=== PATIENT | female | born 1945 | race Native Hawaiian/Other Pacific Islander ===

== ENCOUNTER 2017-03-13 10:12 | Outpatient (CLI) | payer OTHER | END 2017-03-13 12:00 | disposition home or self-care (01) | LOC: MAMMO 10:12 | DX: Z12.31 Encounter for screening mammogram for malignant neoplasm of breast (principal); M81.0 Age-related osteoporosis without current pathological fracture | CPT/HCPCS: G0202-TC ==

== ENCOUNTER 2017-03-28 13:24 | Outpatient (CLI) | payer OTHER | END 2017-03-28 14:45 | disposition home or self-care (01) | LOC: MAMMO 13:24 | DX: R92.0 Mammographic microcalcification found on diagnostic imaging of breast (principal) | CPT/HCPCS: G0206-TC ==

== ENCOUNTER 2017-08-01 10:03 | Outpatient (CLI) | payer OTHER | END 2017-08-01 11:05 | disposition home or self-care (01) | LOC: RAD 10:03 | DX: M89.8X1 Other specified disorders of bone, shoulder (principal); M25.512 Pain in left shoulder ==

== ENCOUNTER 2018-01-23 17:05 | Outpatient (CLI) | payer OTHER | END 2018-01-23 20:34 | disposition home or self-care (01) | LOC: CT 17:05 | DX: S00.83XA Contusion of other part of head, initial encounter (principal) ==

== ENCOUNTER 2018-11-19 15:10 | Outpatient (CLI) | payer OTHER ==
[2018-11-19 15:31] LABS: PLATELET COUNT 251 K/uL (152-353)
[2018-11-19 15:54] LABS: POTASSIUM 3.7 mmol/L (3.6-5.2)
== END 2018-11-19 20:09 | disposition home or self-care (01) ==
LOC: LABW 15:10
PROVIDERS: Internal Medicine Gastroenterology
DX: R10.32 Left lower quadrant pain (principal); K59.1 Functional diarrhea; Z79.899 Other long term (current) drug therapy
CPT/HCPCS: 36415; 80053; 84443; 85027; 85651; 86140

== ENCOUNTER 2018-11-21 13:05 | Outpatient (CLI) | payer OTHER | END 2018-11-21 20:10 | disposition home or self-care (01) | LOC: LAB 13:05 | DX: K59.1 Functional diarrhea (principal); R10.32 Left lower quadrant pain | CPT/HCPCS: 82705; 83630; 87015; 87045; 87324; 87328; 87329; 87449; 87899 ==

== ENCOUNTER 2018-12-04 11:01 | Emergency (ER) | payer OTHER ==
[~2018-12-04] VITALS: Ht 162.6 cm; Wt 54.4 kg
[2018-12-04] MEDS ORDERED: HYDROXYZINE HYD50 MG PO (11:21)
[2018-12-04] MEDS ORDERED: PANTOPRAZOLE 40MG TA PO (11:22)
[2018-12-04] MEDS ORDERED: METR250T19 PO (11:22)
[2018-12-04 12:04] LABS: PLATELET COUNT 249 K/uL (152-353)
[2018-12-04 12:16] LABS: POTASSIUM 3.3 mmol/L (3.6-5.2)
[2018-12-04] MEDS ORDERED: LISITAB PO (12:29)
[2018-12-04 16:20] VITALS: BP 146/77; TEMP 97.6
== END 2018-12-04 16:20 | disposition short-term general hospital (02) ==
LOC: ED 11:01
PROVIDERS: Emergency Medicine
DX: E86.0 Dehydration (principal); B96.89 Other specified bacterial agents as the cause of diseases classified elsewhere; E87.1 Hypo-osmolality and hyponatremia; R79.89 Other specified abnormal findings of blood chemistry
CPT/HCPCS: 36415; 80053; 81000; 82150; 82550; 83605; 83690; 84484; 85027; 93005; 96360; 96361; 96374; 99284; Q0177

== ENCOUNTER 2019-01-02 15:15 | Outpatient (CLI) | payer OTHER ==
[~2019-01-02 15:15] MED LIST: HYDROXYZINE HYD50 MG PO; LISITAB PO; METR250T19 PO; PANTOPRAZOLE 40MG TA PO
== END 2019-01-02 19:41 | disposition home or self-care (01) ==
LOC: LAB 15:15
DX: E87.1 Hypo-osmolality and hyponatremia (principal)
CPT/HCPCS: 83735

== ENCOUNTER 2019-02-07 11:27 | Outpatient (CLI) | payer OTHER | END 2019-02-07 23:59 | disposition home or self-care (01) | LOC: CT 11:27 | DX: K81.9 Cholecystitis, unspecified (principal) | CPT/HCPCS: Q9963 ==

== ENCOUNTER 2019-02-26 13:11 | Outpatient (CLI) | payer OTHER ==
[~2019-02-26] VITALS: Ht 167.6 cm; Wt 49.9 kg
[2019-02-26 13:30] VITALS: BP 121/88; TEMP 98
== END 2019-02-26 14:23 | disposition home or self-care (01) ==
LOC: INF 13:11
DX: M81.0 Age-related osteoporosis without current pathological fracture (principal)
CPT/HCPCS: 36415; 82310; 96372; J0897

== ENCOUNTER 2019-07-17 11:02 | Outpatient (CLI) | payer OTHER ==
[2019-07-17 11:18] LABS: PLATELET COUNT 242 K/uL (152-353)
== END 2019-07-17 22:06 | disposition home or self-care (01) ==
LOC: LABW 11:02
PROVIDERS: Internal Medicine Gastroenterology
DX: K59.1 Functional diarrhea (principal); K80.80 Other cholelithiasis without obstruction
CPT/HCPCS: 36415; 80076; 82272; 82705; 83630; 85027; 87015; 87045; 87324; 87328; 87329; 87449; 87899

== ENCOUNTER 2019-08-31 12:55 | Outpatient (CLI) | payer OTHER ==
[~2019-08-31] VITALS: Ht 152.4 cm; Wt 62.1 kg
[2019-08-31 13:10] VITALS: BP 169/76; TEMP 97.6
== END 2019-08-31 14:05 | disposition home or self-care (01) ==
LOC: INF 12:55
DX: M81.0 Age-related osteoporosis without current pathological fracture (principal)
CPT/HCPCS: 36415; 82310; 96372; J0897

== ENCOUNTER 2020-04-28 08:09 | Outpatient (CLI) | payer OTHER ==
[~2020-04-28] VITALS: Ht 162.6 cm; Wt 59.4 kg
[2020-04-28 08:30] VITALS: BP 157/57; TEMP 97.4
== END 2020-04-28 09:30 | disposition home or self-care (01) ==
LOC: INF 08:09
DX: M81.0 Age-related osteoporosis without current pathological fracture (principal)
CPT/HCPCS: 36415; 82310; 96372; J0897

== ENCOUNTER 2020-05-16 11:09 | Outpatient (CLI) | payer OTHER | END 2020-05-16 23:34 | disposition home or self-care (01) | LOC: LABW 11:09 | DX: K59.1 Functional diarrhea (principal) | CPT/HCPCS: 82705; 83630; 87015; 87045; 87324; 87328; 87329; 87449; 87899 ==

== ENCOUNTER 2020-06-30 11:19 | Outpatient (CLI) | payer OTHER ==
[2020-06-30 12:32] LABS: PLATELET COUNT 218 K/uL (152-353)
[2020-06-30 12:38] LABS: POTASSIUM 3.8 mmol/L (3.6-5.2)
== END 2020-06-30 21:02 | disposition home or self-care (01) ==
LOC: CT 11:19
PROVIDERS: ATTEND Nurse Practitioner Family
DX: R53.83 Other fatigue (principal); R10.11 Right upper quadrant pain; M48.56XD Collapsed vertebra, not elsewhere classified, lumbar region, subsequent encounter for fracture with routine healing
CPT/HCPCS: 80053; 82150; 82306; 83690; 85027

== ENCOUNTER 2020-07-01 13:47 | Outpatient (CLI) | payer OTHER ==
[2020-07-01 14:15] LABS: POTASSIUM 3.9 mmol/L (3.6-5.2)
== END 2020-07-01 22:24 | disposition home or self-care (01) ==
LOC: LAB 13:47
PROVIDERS: ATTEND Family Medicine
DX: N25.89 Other disorders resulting from impaired renal tubular function (principal)
CPT/HCPCS: 80053

== ENCOUNTER 2020-08-24 12:21 | Outpatient (CLI) | payer OTHER ==
[2020-08-24 13:16] LABS: PLATELET COUNT 226 K/uL (152-353)
[2020-08-24 13:19] LABS: POTASSIUM 4.1 mmol/L (3.6-5.2)
== END 2020-08-24 21:44 | disposition home or self-care (01) ==
LOC: LABW 12:21
PROVIDERS: ATTEND Nurse Practitioner Family
DX: N28.89 Other specified disorders of kidney and ureter (principal); N25.89 Other disorders resulting from impaired renal tubular function; R10.11 Right upper quadrant pain
CPT/HCPCS: 36415; 80053; 82150; 83690; 85027

== ENCOUNTER 2020-10-26 14:07 | Outpatient (CLI) | payer OTHER ==
[~2020-10-26] VITALS: Ht 170.2 cm; Wt 63.5 kg
== END 2020-10-26 19:58 | disposition home or self-care (01) ==
LOC: INF 14:07
PROVIDERS: ATTEND Family Medicine
DX: M81.0 Age-related osteoporosis without current pathological fracture (principal)
CPT/HCPCS: 36415; 82310; 96372; J0897

== ENCOUNTER 2020-11-22 15:29 | Inpatient (IN) | payer OTHER ==
[~2020-11-22] VITALS: Ht 170.2 cm; Wt 49.0 kg
--- NOTE | 2020-11-22 15:28 | NUR ---
PT TO FLOOR VIA EMS. PT ALERT TO SELF/ CONFUSED TO LOCATION, TIME, DATE. 22G S/L NOTED TO RFA BRUISING NOTED TO RT ARM, RT LEG AND FOOT. BRUISING NOTED TO LT ARM, LT LEG AND FOOT. BRUISING NOTED TO THADDEUS SIDE. SKIN TEAR TO L ARM, DRY, NO DRAINAGE 3X3X0 SKIN TEAR T0 RT KNEE- OPEN TO AIR, 3CM X2.5 CMX0 SKIN TEAR TO RT SHIP- 4CM X 2CM X 0- SMALL AMT BLOOD NOTED- CLEANED WITH NS, PATTED DRY, COVERED WITH NONSTICK AND TEGADERM. REDNESS UNDER RT BREAST. HEELS BOGGY BILATERALLY. SKIN PREP APPLIED.
[2020-11-22 16:00] VITALS: BP 129/57; TEMP 97.7
[2020-11-22 17:53] LABS: POTASSIUM 3.5 mmol/L (3.6-5.2)
[2020-11-22] MEDS ORDERED: TGT ENTERIC-CO325 MG PO (18:17)
[2020-11-22] MEDS ORDERED: MAG OXIDE400 MG PO (18:18)
[2020-11-22] MEDS ORDERED: MEGE40TA32 PO (18:21)
[2020-11-22] MEDS ORDERED: AMLODIPINE BESYLATE PO (18:24)
[2020-11-22] MEDS ORDERED: ALPR0.5T24 PO (18:24)
[2020-11-22] MEDS ORDERED: CARV25TA PO (18:25)
[2020-11-22] MEDS ORDERED: WELCHOL625 MG PO (18:25)
[2020-11-22] MEDS ORDERED: ONDA4TAB3 PO (18:26)
[2020-11-22] MEDS ORDERED: REMERON30 MG PO (18:26)
[2020-11-22] MEDS ORDERED: PANTOPRAZOLE 40MG TA PO (18:27)
[2020-11-22 18:48] VITALS: BP 129/57; TEMP 97.7; Ht 170.2 cm; Wt 49.0 kg
--- NOTE | 2020-11-22 19:13 | NUR ---
Patient sitting up in bed, conversing with daughter Thania Painting and son-in-law Gabino Painting. Ms. Huerta verbalized enjoying the salad provided to her for her evening meal. Mr. Painting stated that he was very impressed how the previous staff member that brought her meal tray set her tray up for her and presented it to her. He stated that in all the places that he had been with her, he had never seen anyone do that for her. Mr. Painting reported that Ms. Huerta is a finicky eater. Discussed preferences- enjoys raisin toast with peanut butter and coffee, oatmeal with fruit in it, sometimes cheese toast or a grilled cheese sandwich, raisin bran cereal with almond milk (does not drink/limits regular milk) and prefers grilled/baked over fried foods. Family reported that she has chronic diarrhea and when home takes up to 6 pills per day for diarrhea, in addition to vitamins and supplements. Notified patient and family that she does not have orders from Dr. Sandhu for all medication and supplements discussed. Educated patient and family that without an order, nursing staff can not administer medication. They verbalized understanding and Mr. Painting is going to bring the additional supplements and medicine to her nurse tomorrow for Dr. Sandhu to address. Mr. Painting telephone number is . Ms. Huerta is currently living with her daughter and son-in-law and plans to return to their home upon discharge. When discussing discharge plans, Ms. Huerta stated she had used [facility] before and desires to use their services again when she discharges home this time as she was pleased with their services previously. Denied pain when asked, answered all questions, aware of need to use call light for assistance as needed, no further questions. lives with Thania and Gabino and supplements discussed. Notified resident and family that she does not have an order for that
--- NOTE | 2020-11-22 19:13 | NUR ---
MELANIE SOLORZANO- 50MG TRAMADOL PO Q6 PRN PAIN
[2020-11-22 20:27] VITALS: BP 126/57; TEMP 97.6
--- NOTE | 2020-11-22 23:12 | NUR ---
11/22/20 2000: PT AWAKE AND ALERT. ORIENTED TO PERSON, PLACE, SITUATION. PT HAS MULTIPLE SKIN TEARS AND BRUISES. DRESSING TO RIGHT HIP/THIGH DRY AND INTACT S/P RIGHT HIP REPLACEMENT. PT DENIES PAIN AT THIS TIME.
--- NOTE | 2020-11-23 01:28 | NUR ---
PT SLEEPING. NO DISTRESS NOTED. NO COMPLAINTS OF PAIN.
[2020-11-23 08:00] VITALS: BP 146/54; TEMP 98.1
--- NOTE | 2020-11-23 09:40 | NUR ---
ASSISTED PT BACK TO BED FROM CHAIR, PT USED WALKER WITH EXTENSIVE ASSIST X 2 WITH MYSELF AND PCT, ASSISTED WITH CHANGING PT WHILE IN BED EXTENSIVE ASSIST, MYSELF AND PCT MOVED PT UP IN BED WITHOUT HELP FROM PT, PT TOLERATED WELL, DRESSING TO SURGICAL WOUND DRY AND INTACT, REDDNESS NOTED BETWEEN THIGHS, CALAZIME LOTION APPLIED TO AREA AT THIS TIME, NO FURTHER NEEDS AT THIS TIME, PHONE AND CALL LIGHT PLACED WITHIN EASY REACH OF PT, WILL CONTINUE TO MONITOR
--- NOTE | 2020-11-23 09:50 | NUR ---
PAIN MEDICATION GIVEN TO PATIENT, PT RATES PAIN AT A 4 ON 0-10 PAIN SCALE AT THIS TIME, SHE STATES "I AM HAVING A LITTLE PAIN BECUASE I GOT UP AND MOVED AROUND SOME", NO FURTHER NEEDS AT THIS TIME, WILL REASSESS PAIN, CALL LIGHT WITHIN REACH
--- NOTE | 2020-11-23 10:16 | NUR ---
oleg is in the SWING BED PROGRAM and likes raisin toast, peanut butter, coffee, oatmeal, fruit, cheese toast and all food preferences are so noted on the diet card and given as requested and substitutes are offered with all meals. Also likes a Grilled Cheese sandwich. Is here d/t hip fracture; total right hip [id number] rib fracture, UTI, and is a 75YOF, Fracture to right base of the right femur, gastric ulcer, COPD, anxiety, weakness, smoker,fatigue, decreased appetite and is on megace as needed,n/v/diarrhea, C-Diff and is on flagyl; denies pain, SOBHgb at 7.5, Hct at 22.6, Ca 7.2, K 3.5 and 3.3, Na 122, Ca 8.3SGPT/ALT 20 and all depressed; troponin elevated and glucose at 128 elevatedRBC depressed and MCHC elevated; is 5'7 " or 67" at 115.2 lbs. and BMI at 18 and is underweight and IBW = 135+/-10% (121 to 149 lbs.) and kcal needs for IBW x 25 = 1500, x 30 = 1800, x 35 = 2100, x 40 = 2500 kcal/day, protein needs x 1.3 to 1.5 = 80 to 92 grams per day and fluids for IBW x 25 to 40 = 1500 to 2500 ml/cc per day. patient is 85% of IBW. RD Recommendations: 1-[facility] 2-PT to work with the patient 3-OT to work wiht the patient 4-ST to work with the patient as needed 5-Increase fluids as tolerated 6-Add a MVI daily 7-Add Vitamin C 500 mg BID 8-Add ZNSO4 220 mg per day x 14 days 9-Add Beneprotein QID 10-Add a Supplement with meals or between meals
--- NOTE | 2020-11-23 10:30 | NUR ---
IN PT RM TO REASSES PAIN LEVEL, PT RESTING WITH EYES CLOSED AT THIS TIME, I DID NOT DISTURB PT, NAD NOTED, NONLABORED BREATHING, WILL CONTINUETO MONITOR
--- NOTE | 2020-11-23 17:00 | NUR ---
SPOKE WITH DR. SOLORZANO ABOUT RESTARTING PT'S VITAMINS AT THIS TIME, DR. SOLORZANO STATES TO RESTART VITAMIN D 5000 U DAILY, VITAMIN C 500 MG DAILY, VITMAN B12 1000 MCG DAILY, MELATONIN 3 MG DAILY, AND BEGIN ZINC 220MG DAILY, DR. PEREZ ALSO STATES TO LET PT CONTINUE TAKING WELCHOL MEDICATION AND MONITOR BOWEL MOVEMENTS FOR CONSTIPATION AND NOTIFY DR. SOLORZANO OF IRREGULAR BOWEL MOVEMENTS, DR. SOLORZANO STATES TO HOLD PT'S FIBER MEDICATION FROM HOME AT THIS TIME, NO FURTHER ORDERS GIVEN AT THIS TIME
[2020-11-23 18:03] LABS: POTASSIUM 3.6 mmol/L (3.6-5.2)
[2020-11-23 20:00] VITALS: BP 128/56; TEMP 99.3
--- NOTE | 2020-11-23 21:00 | NUR ---
ENTERED PATIENT'S ROOM. PATIENT RESTING QUIETLY IN BED WATCHING TV. RESPIRATIONS EVEN AND UNLABORED. NAD NOTED. SHE DOES REPORT LOW BACK AND BILATERAL FOOT PAIN. WHEN PM MEDICATION WAS ADMINISTERED, PATIENT WAS ASSISTED BY MYSELF AND PCT TO BS. PATIENT DID WELL. ASSISTED BACK INTO BED. BED LOCKED AND IN LOWEST POSITION. CALL LIGHT WITHIN EASY REACH.
--- NOTE | 2020-11-24 06:12 | NUR ---
PATIENT RESTING QUIETLY IN BED WITH EYES CLOSED. RESPIRATIONS EVEN AND UNLABORED. NAD NOTED. BED LOCKED AND IN LOWEST POSITION. CALL LIGHT WITHIN REACH.
[2020-11-24 08:00] VITALS: BP 134/56; TEMP 98.3
--- NOTE | 2020-11-24 09:11 | NUR ---
ASSITED PT TO BSC AT THIS TIME, EXTENSIVE ASSIST NEEDED WITH PT AMBULATING FROM BED TO BSC, PT AMBLE TO STAND ON HER ON FROM THE BSC AND LMIMITED ASSIST NEEDED FOR PT TO PIVOT FROM BSC BACK TO BED, ASSISTED PT WITH PUTTING BRIEF ON AND PANTS, PT PULLED HERSELF UP IN THE BED USING EXT ASSIST WITH HOLDING DOWN HER FEET, NAD NOTED, NO FURTHER NEEDS AT THIS TIME, PT TOOK AM MEDICATIONS WITHOUT COMPLICATION, CALL LIGHT PLACED WITHIIN REACH, WILL CONTINUE TO MONITOR
--- NOTE | 2020-11-24 16:00 | NUR ---
PT CALLED FOR ASSISTANCE TO THE BEDSIDE COMMODE. PT STOOD UP ON HER OWN AND USED THE WALKER TO WALK TO THE BEDSIDE COMMODE. PT PULLED DOWN CLOTHES AND SAT ON BEDSIDE COMMODE WITHOUT ASSISTANCE. PT'S GAIT IS SLIGHTLY UNSTEADY BUT PT STEPS CAREFULLY AND USES WALKER TO MAINTAIN BALANCE. PT IS BACK IN THE BED WITH NEW BRIEF ON, LAYING IN LF. NAD IS NOTED AT THIS TIME.
[2020-11-24 19:54] VITALS: BP 114/53; TEMP 98.8
--- NOTE | 2020-11-25 06:15 | NUR ---
PATIENT RESTING QUIETLY IN BED WITH EYES CLOSED. RESPIRATIONS EVEN AND UNLABORED. NAD NOTED. CHANGED DRESSING TO SKIN TEAR RIGHT ANKLE. MEASUREMENTS FOLLOWS: APPROX. 1.5CM IN LENGTH X 1.5CM IN WIDTH. NON-STICK TELFA AND TEGADERM APPLIED. PATIENT TOLERATED WELL. BED LOCKED AND IN LOWEST POSITION. CALL LIGHT WITHIN EASY REACH.
[2020-11-25 08:00] VITALS: BP 132/60; TEMP 98.8
--- NOTE | 2020-11-25 08:30 | NUR ---
PT A/O X3, NO CONFUSION NOTED AT THIS TIME. PT VERBALIZES UNDERSTANDING OF MEDICATIONS, USE OF CALL LIGHT, AND FALL PRECAUTIONS. LUNGS CTA, DEEP BREATHING AND COUGH EXERCISES PERFORMED, BOWEL SOUND PRESENT X4, DISTAL PULSES PESENT AND EQUAL BILATERALLY, BLE STRENGTH EQUAL, WITH MINIMALPAIN TO RTHIP WITH ACTIVITY. SKIN TEAR NOTED TO RLE, FRESH BANDAGE IN PLACE AND NOTED TO BE CLEAN, DRY AND INTACT. SCATTERED BRUISING NOTED TO ALL EXTREMITIES. 7DAY AQUACELL DRESSING IN PLACE TO RT HIP, INTACT WITH MIN DRAINAGE NOTED UNDER DRESSING- NO ORDERS TO CHANGE AT THIS TIME. SURROUNDING SKIN INTACT AND WNL IN APPEARANCE, MINIMAL EDEMA NOTED. MILD REDNESS NOTED TO BUTTOCKS AND INGUINAL FOLDS FROM BRIEF. PT STATES SHE ONLY REALLY HAS PAIN WHENEVER SHE IS UP ON HER HIP AND ACCEPTS OFFER OF TRAMADOL. PT ABLE TO GET UP TO BSC WITH EXTENSIVE ASSIST X2. PT ACCEPTING OF THERAPY, IS ABLE TO TAKE MEDS WHOLE WITH WATER A FEW AT A TIME. PT GIVEN VANILLA ENSURE.
--- NOTE | 2020-11-25 09:05 | NUR ---
11/25/20 0815 AWAKE LYING IN BED TALKING WITH NURSE NAD NOTED.CC
--- NOTE | 2020-11-25 10:54 | NUR ---
PHYSICAL THERAPY IN TO WORK WITH PT. THERAPY ADVISED NURSE THAT PT BECAME WEAK AND DIZZY AFTER WALKING AROUND ROOM, BEING UP BRUSHING HER TEETH, AND DOING ARM EXERCISES. PT STATES SHE GOT HOT AND SWEATY AND FELT DIZZY AND HAD TO LAY BACK DOWN. IN TO ASSESS PT- PT A/O X3, DENIES SOB OR CHEST PAIN, STATES IT "FELT LIKE MY STITCHES IN MY LEG ARE BURNING". DRESSING TO RHIP NOTED TO BE INTACT WITH NO WORSENING DRAINAGE OR REDNESS TO THE AREA. PT STATES SHE HAS NOT DONE THIS MUCH ACTIVITY SINCE HER SURGERY AND THINKS SHE OVER-DID IT. PT IN NAD AT THIS TIME AND IS TALKING ON THE PHONE TO A FAMILY MEMBER. BP-102/49 P-90 94% RA
--- NOTE | 2020-11-25 15:08 | NUR ---
11/25/20 1500 PT SITTING ON BEDSIDE COMMODE PCT ASSISTING PT TO TAKE A BATH.PCT CALLED ME TO ROOM PT HAD RUBBED HER RT KNEE HAS GOTTEN A SKIN TEAR BLEEDING APPROX 2X2 IN DIAMETER.BLEEDING STOPPED APPLIED TEGADERM TO AREA.CC
[2020-11-25 17:47] LABS: POTASSIUM 4.4 mmol/L (3.6-5.2)
--- NOTE | 2020-11-25 18:32 | NUR ---
11/25/201829 SITTING UP IN BED EATING SOME PUDDING NO C/O VOICED.CALL LIGHT WITHIN REACH.CC
--- NOTE | 2020-11-25 18:52 | NUR ---
11/25/20 184 NOTIFIED OF PT LABS.CLARIFICATION ON LABS PT IS TO HAVE LABS BMP,H&H WEEKLY ON SATURDAY ONLY STARTING ON 12/04/20.CC
[2020-11-25 19:54] VITALS: BP 134/63; TEMP 98.6
--- NOTE | 2020-11-25 19:55 | NUR ---
PT SITTING UP IN A HIGH-FOWLERS POSITION WITH SIDE RAILS UP TIMES TWO WITH BED IN LOWEST POSITION WATCHING TV WITH NAD NOTED.
--- NOTE | 2020-11-25 20:30 | NUR ---
PCT AT BEDSIDE TO HELP ASSIST PT TO THE BEDSIDE AT THIS TIME. PT BACK IN BED AND NAD NOTED.
[2020-11-26 08:00] VITALS: BP 136/63; TEMP 99
--- NOTE | 2020-11-26 08:29 | NUR ---
IDT meeting with the Swing Bed patient and son lost weight and mother lost weight went from 140 to 115 lbs. per patient and son and per the patient wants to gain weight and goal is [address] Recommendations: 1-Add MVI 2-Add Appetite Stimulant 3-Add Supplement QID to promote weight gain as the patient wants 4-INcrease portions on trays if will eat maybe try large portions.
--- NOTE | 2020-11-26 09:12 | NUR ---
PT UP TO BSC USING WALKER AND X1 PERSON ASSIST FOR BM, SMALL, LOOSE STOOL NOTED WITH SMALL AMT URINE ALSO. PT STATES SHE WISHES TO WASH OFF. BASIN AND HOT WATER/SOAP PROVIDED. PT WASHED ALL ANTERIOR UPPER BODY AND LOWER BODY TO KNEES WELL PERINEAL AREAS. STAFF WASHED BACK AND BLE KNEES TO FEET. SKIN MOISTURIZER APPLIED. PT ASSISTED WITH DRESSING. PT TRANSFERRED TO RECLINER WITH FEET ELEVATED, PILLOWS PROVIDED FOR COMFORT/POSITIONING. PT TOLERATED ACTIVITY FAIR, GETTING VERY TIRED AT END OF ACTIVITY. PT GIVEN SEVERAL BOTTLES OF WATER AND ENSURE AND IS ENCOURAGED TO DRINK MORE. CALL LIGHT IN EASY REACH. CELL PHONE PLUGGED IN FOR PT AT HER REQUEST. ROOM PHONE ON TABLE IN REACH. PT IN NAD AT THIS TIME. WILL CONTINUE TO MONITOR.
--- NOTE | 2020-11-26 12:30 | NUR ---
Pt c/o "burning with urination". CLEAN CATCH URINE SAMPLE COLLECTED AND TAKEN TO LAB.
--- NOTE | 2020-11-26 17:00 | NUR ---
DR. SOLORZANO NOTIFIED OF UA RESULTS.
--- NOTE | 2020-11-26 18:24 | NUR ---
MELANIE SOLORZANO- DIFLUCAN 200MG PO DAILY X3 DAYS.
[2020-11-26 20:07] VITALS: BP 130/56; TEMP 98.4
--- NOTE | 2020-11-27 05:37 | NUR ---
11/26/201999: PT AWAKE, ALERT, DENIES DISCOMFORT. PT HAS SURGICAL DRESSING TO RIGHT HIP S/P RIGHT HIP REPLACEMENT. ASSISTED UP TO BSC. PT USES WALKER AND ASSISTX1 OF NURSE. NO VOICED COMPLAINTS AT THIS TIME.
--- NOTE | 2020-11-27 05:40 | NUR ---
PT HAS SLEPT WELL THIS SHIFT. NO DISTRESS NOTED. NO COMPLAINTS OF PAIN EXPRESSED. DRESSING DRY AND INTACT.
[2020-11-27 08:00] VITALS: BP 123/54; TEMP 98.1
--- NOTE | 2020-11-27 11:09 | NUR ---
PT ASSISTED WITH SPONGE BATH, SKIN CARE AND DRESSING. PT WEAKER TODAY, STATES HER RT LEG IS "MORE STIFF AND PAINFUL" THAN YESTERDAY. PT ENCOURAGED TO PERFORM AROM AND ACCEPTING OF THIS. DRESSING TO RT HIP CONTINUES TO BE CLEAN AND DRY WITH MINIMAL AMT OF DRAINAGE UNDER DRESSING. SENIOR UI DESIGNER BLE <3, PEDAL PUSHES EQUAL. PT STATES SHE DIDN'T REST WELL LAST NIGHT BECAUSE HER LEG WAS HURTING BUT SHE DIDN'T WANT TO BOTHER ANYONE TO CALL AND ASK FOR PAIN MEDICATIONS. PT ASSISTED BACK TO BED X2 PERSON ASSIST. CALL LIGHT IN EASY REACH. BED LOW, LOCKED, ST UP X2. BELONGINGS PROVIDED TO PT
[2020-11-27] MEDS ORDERED: LISI20TA11 PO (18:27)
[2020-11-27] MEDS ORDERED: PAXIL20 MG PO (18:27)
--- NOTE | 2020-11-27 18:28 | NUR ---
PT'S FAMILY TO BEDSIDE, STATES SHE HAS BEEN TAKING PAXIL 20MG PO QAM. MED WAS NOT CONTINUED BY PA WHO TRANSFERRED PT TO [facility]. PT WAS ALSO TAKING ZESTRIL 20MG PO BID PRIOR TO HOSPITALIZATION IN [facility] BUT MED NOT CONTINUED ON D/C AND TRANSFER TO [facility]. DR. SOLORZANO NOTIFIED OF THIS.
--- NOTE | 2020-11-27 18:30 | NUR ---
MELANIE SOLORZANO -RESTART HOME MED PAXIL 20MG PO QAM.
[2020-11-27 19:51] VITALS: BP 133/55; TEMP 98.2
--- NOTE | 2020-11-27 21:09 | NUR ---
PM MEDS GIVEN AT THIS TIME. PT TOLERATED WELL. PT SITTING UP WATCHING TV IN A HIGH FOWLERS POSITION, BED IN LOWEST POSITION, AND CALL LIGHT WITHIN REACH. PT RESPONSIVE TO VERBAL STIMULI. NO NAD NOTED. WILL CONTINUE TO MONITOR.
[2020-11-28 08:00] VITALS: BP 105/52; TEMP 98.8
--- NOTE | 2020-11-28 08:30 | NUR ---
IN PT RM FOR MORNING MEDICATIONS AND ASSESSMENT, PT LYING IN LF, NAD NOTED, NONLABORED BREATHING, PT STATES SHE IS IN NO PAIN THIS AM JUST THAT HER RT LOWER EXT IS STIFF THIS AM, DRESSING TO RT HIP INTACT WITH NO SWELLING OR REDNESS NOTED, MINIMAL DRAINAGE NOTED UNDER DRESSING, SKIN TEAR TO RT KNEE HEALING WITH SCAB NO OPEN AREA, DRESSING TO RT ANKLE INTACT NO DRAINAGE NOTED, BRUISING NOTED TO BILAT UPPER AND LOWER EXT FROM PREVIOUS FALL AT HOME, PT HAS NO COMPLAINTS THIS AM AND TOOK HER MORNING MEIDCATIONS AND PROTEINEX WITH ENSURE WITHOUT DIFFICULTY, NO FURTHER NEEDS AT THIS TIME, CALL LIGHT WITHIN REACH, WILL CONTINUE TO MONITOR
[2020-11-28 20:00] VITALS: BP 102/56; TEMP 98.4
--- NOTE | 2020-11-29 07:41 | NUR ---
PT SITTING IN HF BRUSHING HER HAIR USING A MIRROR, NAD NOTED, PT STATES SHE IS NOT IN PAIN AT THIS TIME, PT HAS NO NEEDS AT THIS TIME, CALL LIGHT IS WITHIN REACH, WILL CONTINUE TO MONITOR
[2020-11-29 08:00] VITALS: BP 117/67; TEMP 98
--- NOTE | 2020-11-29 08:34 | NUR ---
CHANGED DRESSING TO RT ANKLE AT THIS TIME, OPEN SKIN TEAR NOTED WITH RED HEALING SKIN, NO DRAINAGE, ODOR, OR DISCOLORATION NOTED, NONADHERENT PAD APPLIED THEN TEGADERM, PT TOLERATED WELL, NO FURTHER NEEDS AT THIS TIME
[2020-11-29 20:00] VITALS: BP 122/54; TEMP 97.9
[2020-11-30 09:23] VITALS: BP 115/61; TEMP 98.3
--- NOTE | 2020-11-30 09:40 | NUR ---
PT LAYING IN BED, STATES SHE IS TOO COLD TO GET UP AND SIT IN THE RECLINER, STATES SHE MIGHT TRY TO GET UP AFTER LUNCH. PT DROWSY BUT AWAKENS EASILY. LUNGS CTA, BOWEL SOUNDS ACTIVE, PEDAL PULSES FAINT BUT PRESENT BILATERALLY. DRESSING TO RT HIP INTACT, CLEAN AND DRY WITH MINIMAL DRAINAGE NOTED. AROM OF BLE PERFORMED IN BED. PT TOLERATED WELL.
--- NOTE | 2020-11-30 10:11 | NUR ---
UPDATE GIVEN TO PT'S SON ABOUT MEDICATIONS SHE IS CURRENTLY TAKING/ WHY BP MEDS ARE BEING HELD/ FOLLOW UP APPTS WITH [facility].
--- NOTE | 2020-11-30 10:11 | NUR ---
PT'S FAMILY STATE THEY WOULD PREFER HER TO HAVE XANAX DOSE AT HS AND THAT MED DOSE BE DECREASED. WILL UPDATE DR. SOLORZANO.
--- NOTE | 2020-11-30 10:44 | NUR ---
PT ALERT BUT SLEEPY, STATES SHE IS COLD AND WANTS TO STAY IN BED UNTIL AFTER LUNCH. PT AGREES TO ROM TO BLE IN BED AND PERFORMS 6 REPS/SIDE. DRESSING TO RT HIP CDI WITH MIN DRAINAGE, NO WARMTH AND REDNESS NOTED TO RT HIP. PEDAL PULSES PRESENT,FAINT BILATERALLY, STRENGTH TO BLE EQUAL BILATERALLY TO BOTH FEET. FAMILY IN TO SEE PT.
--- NOTE | 2020-11-30 16:11 | NUR ---
[facility] F/U APPT WITH DR. HANDLEY 12/13/20 AT 1520 ORTHO TO CALL BACK WITH ANY WOUND CARE/DSG CHANGE ORDERS.
[2020-11-30 19:46] VITALS: BP 114/45; TEMP 98.6
--- NOTE | 2020-11-30 19:48 | NUR ---
PT AWAKE, ALERT, DENIES PAIN AT THIS TIME. DRESSING TO RIGHT HIP DRY AND INTACT. PT USES WALKER AND ASSIST TO BSC.
--- NOTE | 2020-12-01 00:10 | NUR ---
PT SLEEPING IN LOW FOWLERS POSITION. NO DISTRESS NOTED.
--- NOTE | 2020-12-01 04:04 | NUR ---
PT RESTING QUIETLY. NO DISTRESS NOTED.
[2020-12-01 08:00] VITALS: BP 103/53; TEMP 98.4
--- NOTE | 2020-12-01 15:30 | NUR ---
PATIENT RESTING IN BED. NAD NOTED. PATIENT STATED THAT HER NOSE HAS BEEN RUNNING. SHE STATED THAT THERAPY WORE HER OUT TODAY. PATIENT GETS UP TO [facility] WITH NO ASSISTANCE USING THE WALKER.
[2020-12-01 20:00] VITALS: BP 107/46; TEMP 98.9
--- NOTE | 2020-12-02 00:22 | NUR ---
PT IS RESTING WITH EYES CLOSED. RESP EVEN AND NONLABORED. PT'S DRESSING TO HER S/P RIGHT HIP IS DRY AND INTACT. LOWER EXTREMITIES WITH BRUSING AND SKIN TEARS THAT WERE PRESENT DELINQUENCY PREVENTION OFFICER. PT S/P FALL AT HOME. BRUSING ALSO NOTED TO UPPER EXT. PT WAS ABLE TO TAKE PO MEDICATIONS WITH WATER. NO DIFFICULTY SWALLOWING. BP IS WNLS AT 8PM CHECK. PT HAS BEDSIDE TABLE EASY REACH. BED IN LOW POSITION. BSC AT BEDSIDE. INSTRUCTED PT TO CALL FOR ASSISTANCE. PT VOICED UNDERSTANDING.
[2020-12-02 08:00] VITALS: BP 124/61; TEMP 98
--- NOTE | 2020-12-02 08:00 | NUR ---
ASSISTED PT UP TO BSC WITH MIN ASSIST X 1. PT AMBULATED TO BSC WELL. NO ACUTE DISTRESS NOTED.
--- NOTE | 2020-12-02 09:00 | NUR ---
SET UP ONLY NEEDED WITH BREAKFAST TRAY. PT STATED SHE DID NOT HAVE MUCH OF AN APPT. PT HOWEVER DID REQUEST AN ENSURE TO DRINK. WILL CONT TO MONITOR.
--- NOTE | 2020-12-02 09:30 | NUR ---
PT CONSUMMED ALL OF ENSURE AT THIS TIME.
--- NOTE | 2020-12-02 12:30 | NUR ---
DR HANDLEY'S OFFICE CALLED AND MESSAGE LEFT CONCERNING WOUND CARE TO RT HIP PER DR ESTRADA ORDERS. AWAITING CALL BACK FOR FURTHER WOUND CARE ORDERS. DRESSING TO RT HIP CLEAN, DRY AND INTACT AT THIS ITME.
--- NOTE | 2020-12-02 13:49 | NUR ---
SPOKE WITH PT'S FAMILY MEMEBER VIA PHONE. PT HAD STATED EARLIER THAT IT WAS OK TO SPEAK WITH THEM OVER THE PHONE.
--- NOTE | 2020-12-02 17:30 | NUR ---
BEEF SKINNER WAS BRINGING IN DINNER TRAY, PT WAS ON BSC WITHOUT ANY ASSISTANCE. PT STATED TO PUT THE TRAY ON THE BEDSIDE TABLE WHERE SHE CAN GET IT WHEN SHE WAS DONE. PT DENIES ANY NEEDS AT THIS TIME.
[2020-12-02 20:00] VITALS: BP 113/56; TEMP 98.1
--- NOTE | 2020-12-02 20:30 | NUR ---
PATIENT RESTING QUIETLY IN BED WATCHING TV. RESPIRATIONS EVEN AND UNLABORED. NAD NOTED. C/O FREQUENT URINATION- BUT DENIES BURNING OR URGENCY. AQUACEL TO RIGHT HIP INTACT. ENSURE GIVEN TO PATIENT TO DRINK. BED LOCKED AND IN LOWEST POSITION. CALL LIGHT WITHIN EASY REACH.
--- NOTE | 2020-12-02 23:00 | NUR ---
IN TO CHECK ON PATIENT. PATIENT UP USING WALKER TO TRANSFER TO [facility]. I SUPERVISED PATIENT WHILE SHE AMBULATED TO [facility]. NO ASSISTANCE REQUIRED. PATIENT WAS ABLE TO PERFORM ON HER OWN WITHOUT ASSISTANCE FROM OTHERS. PATIENT NOW BACK IN BED. CALL LIGHT WITHIN REACH.
--- NOTE | 2020-12-03 06:37 | NUR ---
PATIENT RESTING QUIETLY IN BED WITH EYES CLOSED. RESPIRATIONS EVEN AND UNLABORED. NAD NOTED. BED LOCKED AND IN LOWEST POSITION. CALL LIGHT WITHIN EASY REACH.
--- NOTE | 2020-12-03 07:30 | NUR ---
ENTERED PT'S ROOM FOR MORNING ROUNDS. PT IS ON BEDSIDE COMMODE. PT GOT ON BEDSIDE COMMODE WITHOUT ANY ASSISTANCE. WHEN REHAB ASSISTANT ASKED IF PT NEEDED ANY HELP PT STATED NO THAT SHE JUST HAD TO PEE. REHAB ASSISTANT TOLD PT TO USE CALL LIGHT IF SHE NEEDED ANY HELP.
[2020-12-03 08:00] VITALS: BP 112/62; TEMP 97.7
--- NOTE | 2020-12-03 08:55 | NUR ---
Met with the IDT yesterday and patient;s admitting and weight now almost the same and she now is drinking the Ensure Clear per her choice and likes the Mixed [place] Ensure Clear drinks, ate a good breakfast and also drank the supplement. Please with all and sontinues to want to gain weight, see RD's past notes.
--- NOTE | 2020-12-03 09:00 | NUR ---
WASTE COLLECTOR WAS PICKING UP TRAYS, PT DID NOT EAT ANYTHING. PT STATED THAT HER SON WAS BRINGING HER A SAUSAGE BISCUIT INSTEAD. PROTIENEX WAS GIVEN TO PT IN A MEDLEY ENSURE.
--- NOTE | 2020-12-03 12:20 | NUR ---
PT STATES THAT SHE IS IS EXPERIENCING ALOT OF "NERVOUSNESS" TODAY. THAT SHE FEELS LIKE SHE SHOULD BE UP DOING SOMETHING AND IT IS MAKING HER UPSET. DR. SOLORZANO HAS BEEN CONTACTED AND PICK UP ATTENDANT WAS INSTRUCTED TO GIVE THE PRN DOSE OF XANAX.
--- NOTE | 2020-12-03 14:10 | NUR ---
PT IS RESTING IN THE BED IN LF WITH EYES OPEN WATCHING A MOVIE. NO COMPLAINTS/NEEDS AT THIS TIME.
[2020-12-03 20:00] VITALS: BP 110/53; TEMP 98.1
--- NOTE | 2020-12-03 20:00 | NUR ---
ENTERED PATIENT'S ROOM. PATIENT LYING IN BED WATCHING TV. NAD NOTED. PATIENT REPORTS SOME RIGHT HIP PAIN AT THIS TIME. STATES SHE IS READY TO GO TO BED. WALKER AT BEDSIDE. BED LOCKED AND IN LOWEST POSITION. CALL LIGHT WITHIN EASY REACH.
--- NOTE | 2020-12-04 01:10 | NUR ---
PATIENT RESTING QUIETLY IN BED WITH EYES CLOSED. NAD NOTED. CALL LIGHT WITHIN REACH.
[2020-12-04 05:00] LABS: POTASSIUM 4.7 mmol/L (3.6-5.2)
--- NOTE | 2020-12-04 06:00 | NUR ---
PATIENT SITTING UP IN BED WATCHING TV. STATES SHE WAS REALLY THIRSTY. I GOT SOME WATER FOR HER. I EXPLAINED THAT SHE CAN CALL US ANYTIME, AND WE WOULD BE GLAD TO GET HER WATER OR WHATEVER SHE NEEDS. SHE VERBALIZED UNDERSTANDING OF THE ABOVE. NAD NOTED. CALL LIGHT WITHIN EASY REACH.
[2020-12-04 08:00] VITALS: BP 116/60; TEMP 97.9
--- NOTE | 2020-12-04 10:48 | NUR ---
PT IS LAYING IN BED, TALKING ON THE PHONE. PT DENIED ANY NEEDS AT THIS TIME. NAD IS NOTED AT THIS TIME.
[2020-12-04 20:00] VITALS: BP 136/70; TEMP 98.2
--- NOTE | 2020-12-04 20:15 | NUR ---
ENTERED PATIENT'S ROOM AT THIS TIME. PATIENT LYING IN BED WATCHING TV. SHE WAS REQUESTING LAB WORK. I INFORMED HER THAT SHE HAD LAB WORK THIS MORNING, AND THE DOCTOR DID THINK ANYTHING WAS OUT OF THE ORDINARY. SHE VERBALIZED UNDERSTANDING OF THE ABOVE. SHE DENIES PAIN AT THIS TIME. WALKER AT BEDSIDE. BED LOCKED AND IN LOWEST POSITION. CALL LIGHT WITHIN EASY REACH.
[2020-12-05 08:00] VITALS: BP 116/55; TEMP 97.7
--- NOTE | 2020-12-05 08:09 | NUR ---
LATE ENTRY - PATIENT PARTICIPATED WITH PHYSICAL THERAPY AND IS WALKING WITH HER WALKER DOWN THE BABIN, WITH PHYSICAL THERAPY PUSHING WHEELCHAIR BEHIND HER. PATIENT IS IN GOOD SPIRITS AND IS SMILING WITH ACTIVITY. NO ACUTE PAIN IS VOICED AT THIS TIME.
--- NOTE | 2020-12-05 12:33 | NUR ---
CALLED DR BADILLO OFFICE SPOKE ANA. NEW ORDER GIVEN TO REMOVE DRESSING AND ISAEL APPLY STERI STRIPS. DR SOLORZANO NOTIFIED AND GAVE PERMISSION FOR THIS ORDER TO BE CARRIED OUT.
--- NOTE | 2020-12-05 18:58 | NUR ---
spoke with pt today at bedside to assess dc plans. She stated she plans to return to her son & daughter in laws home, [employer], . She states she does not need any additional equipment. She also stated she preferred to do outpt therapy with [facility] outpatient rehab.
[2020-12-05 20:22] VITALS: BP 128/62; TEMP 97.8
--- NOTE | 2020-12-05 20:28 | NUR ---
PT AWAKE, ALERT. INCISION TO RIGHT HIP OPEN TO AIR WITH STERI-STRIPS IN PLACE. NO REDNESS OR S/S OF INFLAMATION NOTED.
--- NOTE | 2020-12-06 02:10 | NUR ---
PT RESTING WELL. NO DISTRESS NOTED.
[2020-12-06 08:00] VITALS: BP 127/58; TEMP 98.5
--- NOTE | 2020-12-06 12:15 | NUR ---
PATIENT CALLED THE NURSES STATION AND STATED THAT HER IV WAS HURTING. UPON ASSESSMENT IV FLUSHED AND PATIENT EXPRESSED PAIN AND RESISTANCE WAS NOTED WELL. IV REMOVED WITH TIP INTACT AND SECURED WITH 2X2 AND TAPE.
--- NOTE | 2020-12-06 12:18 | NUR ---
PATIENT ENCOURAGED TO USE INCENTIVE SPIROMETER AND SHE WAS ABLE TO PULL 750 TO 1000 ML - 10 BREATHS AND COUGHED SEVERAL TIMES B/W ACTIVITY. PATIENT TOLERATED WELL.
[2020-12-06 20:11] VITALS: BP 123/69; TEMP 97.7
--- NOTE | 2020-12-07 01:16 | NUR ---
12/06/20 2000: PT AWAKE, ALERT, DENIES DISCOMFORT. SURGICAL INCISION INTACT WITH STERI-STRIPS AND OPEN TO AIR. NO S/S OF INFLAMATION NOTED. PT C/O BEING STUFFY IN HER HEAD.
--- NOTE | 2020-12-07 01:18 | NUR ---
12/07/20 0000: PT SLEEPING. NO DISTRESS NOTED.
[2020-12-07 08:00] VITALS: BP 128/56; TEMP 99
--- NOTE | 2020-12-07 09:00 | NUR ---
PT CALLED NURSE TO ROOM TO USE BSC. SET UP HELP NEEDED WITH BSC. PT ABLE TO TRANSFER FROM BED TO BSC WITH ONLY SET UP HELP NEEDED. PT ASSISTED BACK TO BED. PT TOLERATED WELL. WILL CONT TO MONITOR. STERI-STRIPS NOTED TO RT HIP AREA. INCISION CLEAN DRY AND STERI-STRIPS INTACT. NO BLEEDING OR DRANAGE NOTED AT THIS TIME. NO REDNESS NTOED.
--- NOTE | 2020-12-07 10:30 | NUR ---
INFORMED FROM NOAH IN UR THAT PT'S DISCHARGE DATE WOULD BE ON 12/11/20. UR STATED THEY HAD ALREADY SPOKEN TO PT'S SON AND MADE HIM AWARE.
--- NOTE | 2020-12-07 11:00 | NUR ---
PT NOTED IN HALLWAY AMBULATING WITH THERAPY. PT USING WALKER AND GAIT BELT INTACT. PT TOELRATING WELL NO DISTRESS NOTED.
[2020-12-07 20:00] VITALS: BP 137/77; TEMP 98.8
[2020-12-08 08:00] VITALS: BP 135/66; TEMP 97.9
--- NOTE | 2020-12-08 09:55 | NUR ---
PATIENT IS WALKING DOWN THE BABIN WITH PHYSICAL THERAPY AND IS USING HER WALKER. PATIENT IS RECEPTIVE TO ACTIVITY AND WAS ABLE TO WALK FROM HER ROOM 1110 DOWN TO THE ROOM 1119 AND BACK UP TO THE NURSES STATION.
[2020-12-08 20:00] VITALS: BP 139/67; TEMP 98.4
--- NOTE | 2020-12-08 20:00 | NUR ---
IN PATIENTS ROOM TO CHECK ON HER AND SHE IS UP AMBULATING IN THE ROOM WITH HER WALKER AND WITHOUT ANY DIFFICULTY. PATIENT STATES "IM MUCH BETTER AND READY TO GO HOME." TALKED WITH PATIENT ABOUT CONTINUING TO USE HER WALKER WHEN SHE GOES HOME IN A COUPLE OF DAYS AND SHE STATED "OH I WILL, I WILL BE EXTRA CAREFUL!". NO ACUTE DISTRESS NOTED AT THIS TIME. PATIENT ASKED FOR TRAMADOL WITH HER DAILY MEDS AND STATES HER PAIN IS "MILD AT A 4". CALL LIGHT WITHIN REACH AND WILL CONTINUE TO MONITOR.
--- NOTE | 2020-12-08 21:59 | NUR ---
PATIENT GIVEN TRAMADOL 50MG 1 TABLET PO FOR C/O RIGHT HIP PAIN AT A SCALE OF 4 OUT OF 0-10. PATIENT TOLERATED PO MEDS WELL. CALL LIGHT WITHIN REACH. WILL CONTINUE TO MONITOR.
--- NOTE | 2020-12-08 23:05 | NUR ---
PATIENT RESTING QUIETLY WITH EYES CLOSED NO ACUTE DISTRESS NOTED. CALL LIGHT WITHIN REACH. WILL CONTINUE TO MONITOR.
--- NOTE | 2020-12-09 03:10 | NUR ---
PATIENT RESTING QUIETLY WITH EYES CLOSED. NO ACUTE DISTRESS NOTED. WILL CONTINUE TO MONITOR.
[2020-12-09 08:00] VITALS: BP 117/66; TEMP 97.9
--- NOTE | 2020-12-09 10:50 | NUR ---
PATIENT PARTICIPATED WITH SWING BED ROUNDING THIS MORNING. PATIENT VOICES SHE IS READY TO GO HOME AND IS AWARE WHAT SHE NEEDS TO CONTINUE TO DO AT HOME TO DO ADLS. PATIENT WAS ALSO USING HER BICYCLE WITH PHYSICAL THERAPY AT THE BEDSIDE AND WAS TOLERATING ACTIVITY WELL.
--- NOTE | 2020-12-09 17:00 | NUR ---
STANDBY ASSIST FOR PATIENT TO TRANSFER TO CHAIR FOR DINNER. PT TOLERATED ACTIVITY WELL. PT C/O NAUSEA- ZOFRAN ADMIN PO AND PT GIVEN A CAFFEINE FREE SODA ON REQUEST.
--- NOTE | 2020-12-09 17:00 | NUR ---
PATIENT PARTICIPATED WITH SWING BED ROUNDING THIS MORNING. PATIENT WAS HAPPY THAT SHE WILL BE GOING HOME THIS WEEKEND. PATIENT HAS PARTICIPATED WITH PHYSICAL THERAPY AND FORE THE MOST PART IS ABLE TO DO ALL HER ACTIVITIES OF DAILY LIVING WITH STAND BY ASSIST. PATIENT IS EATING HER MEALS AND ENJOYS HER ENSURE CLEAR THROUGH OUT THE DAY- SHE HAD 2 TODAY.
[2020-12-09 20:26] VITALS: BP 153/69; TEMP 98.6
--- NOTE | 2020-12-09 22:43 | NUR ---
PATIENT DENIES ANY PAIN AND SAID, "SHE HAD A GOOD DAY." PATIENT IS ALERT AND ORIENTED AND RESTING QUIETLY
--- NOTE | 2020-12-10 02:30 | NUR ---
PATIENT RESTING QUIETLY BREATHING IS REGULAR ANS NON LABORED
--- NOTE | 2020-12-10 07:55 | NUR ---
IDT team meeting and patient was please with all and ready to go home. Only positive comments.
[2020-12-10 08:00] VITALS: BP 134/65; TEMP 98.5
--- NOTE | 2020-12-10 12:07 | NUR ---
DC INSTRUCTIONS EXPLAINED TO PATIENT AND TO CAREGIVER WHO VERBALIZED UNDERSTANDING. BELONGINGS SENT HOME WITH PT. PT WHEELED TO EXIT AND FOR TRANSPORT HOME WITH SON. PT LEFT FLOOR IN NAD.
== END 2020-12-10 11:54 | disposition home or self-care (01) | DRG 560 ==
LOC: MED/SURG 15:29
PROVIDERS: ADMIT Family Medicine; ATTEND Family Medicine
DX: S72.041D Displaced fracture of base of neck of right femur, subsequent encounter for closed fracture with routine healing (principal); J96.10 Chronic respiratory failure, unspecified whether with hypoxia or hypercapnia; E44.1 Mild protein-calorie malnutrition; E87.1 Hypo-osmolality and hyponatremia; Z47.1 Aftercare following joint replacement surgery; S22.31XD Fracture of one rib, right side, subsequent encounter for fracture with routine healing; J44.9 Chronic obstructive pulmonary disease, unspecified; M62.81 Muscle weakness (generalized); R26.2 Difficulty in walking, not elsewhere classified; Z74.1 Need for assistance with personal care; K58.9 Irritable bowel syndrome, unspecified; R62.7 Adult failure to thrive; M81.0 Age-related osteoporosis without current pathological fracture; F41.1 Generalized anxiety disorder; Z91.81 History of falling; E83.42 Hypomagnesemia; F32.9 Major depressive disorder, single episode, unspecified
CPT/HCPCS: 36415; 80048; 81000; 85014; 85018; 87081; 87086; 87088; 94760

== ENCOUNTER 2021-07-11 09:51 | Outpatient (CLI) | payer OTHER ==
[~2021-07-11 09:51] MED LIST changes: +ALPR0.5T24 PO; +AMLODIPINE BESYLATE PO; +CARV25TA PO; +LISI20TA11 PO; +MAG OXIDE400 MG PO; +MEGE40TA32 PO; +ONDA4TAB3 PO; +PAXIL20 MG PO; +REMERON30 MG PO; +TGT ENTERIC-CO325 MG PO; +WELCHOL625 MG PO
== END 2021-07-11 18:57 | disposition home or self-care (01) ==
LOC: CT 09:51
PROVIDERS: ATTEND Physician Assistant
DX: R42 Dizziness and giddiness (principal)

== ENCOUNTER 2021-07-30 13:53 | Emergency (ER) | payer OTHER ==
[~2021-07-30] VITALS: Ht 170.2 cm; Wt 52.2 kg
[2021-07-30 13:53] VITALS: TEMP 97.9
[2021-07-30] MEDS ORDERED: MONT10TA PO (14:03)
[2021-07-30] MEDS ORDERED: OXYB5TAB56 PO (14:03)
[2021-07-30 14:21] LABS: PLATELET COUNT 131 K/uL (152-353)
[2021-07-30 14:23] LABS: POTASSIUM 3.6 mmol/L (3.6-5.2)
[2021-07-30 14:41] LABS: PARTIAL THROMBOPLASTIN TIME 30.5 SECONDS (24.5-33.6)
[2021-07-30 16:30] VITALS: BP 96/55
== END 2021-07-30 16:30 | disposition home or self-care (01) ==
LOC: ED 13:53
PROVIDERS: Hospitalist
DX: J44.1 Chronic obstructive pulmonary disease with (acute) exacerbation (principal); J40 Bronchitis, not specified as acute or chronic
CPT/HCPCS: 36600; 80053; 82550; 82805; 83880; 84484; 85007; 85027; 85610; 85730; 93005; 96360; 96365; 96375; 99284; J0696; J2930

== ENCOUNTER 2022-03-14 11:08 | Emergency (ER) | payer OTHER ==
[~2022-03-14] VITALS: Ht 170.2 cm; Wt 56.7 kg
[~2022-03-14 11:08] MED LIST changes: +MONT10TA PO; +OXYB5TAB56 PO
[2022-03-14 11:10] VITALS: BP 157/105; TEMP 97.5
== END 2022-03-14 13:05 | disposition home or self-care (01) ==
LOC: ED 11:08
DX: S16.1XXA Strain of muscle, fascia and tendon at neck level, initial encounter (principal); S40.011A Contusion of right shoulder, initial encounter; R26.81 Unsteadiness on feet; W18.39XA Other fall on same level, initial encounter; Y92.89 Other specified places as the place of occurrence of the external cause
CPT/HCPCS: 99283

== ENCOUNTER 2022-07-08 08:52 | Emergency (ER) | payer OTHER ==
[~2022-07-08] VITALS: Ht 170.2 cm; Wt 56.7 kg
[2022-07-08 08:52] VITALS: TEMP 99.1
[2022-07-08 11:04] VITALS: BP 178/78
== END 2022-07-08 11:06 | disposition home or self-care (01) ==
LOC: ED 08:52
DX: S00.03XA Contusion of scalp, initial encounter (principal); S73.192A Other sprain of left hip, initial encounter; W01.198A Fall on same level from slipping, tripping and stumbling with subsequent striking against other object, initial encounter; Y92.092 Bedroom in other non-institutional residence as the place of occurrence of the external cause
CPT/HCPCS: 99283

== ENCOUNTER 2022-09-01 05:40 | Outpatient (CLI) | payer OTHER ==
[2022-09-01 06:01] LABS: PLATELET COUNT 184 K/uL (152-353)
[2022-09-01 06:20] LABS: POTASSIUM 3.7 mmol/L (3.6-5.2); SODIUM 139 mmol/L (136-145)
== END 2022-09-01 19:00 | disposition home or self-care (01) ==
LOC: LAB 05:40
PROVIDERS: ATTEND Family Medicine
DX: I10 Essential (primary) hypertension (principal); Z16.24 Resistance to multiple antibiotics
CPT/HCPCS: 36415; 80053; 80061; 85027; 87081

== ENCOUNTER 2023-01-24 08:30 | Outpatient (CLI) | payer OTHER ==
[2023-01-24 08:58] LABS: PLATELET COUNT 131 K/uL (152-353)
== END 2023-01-24 19:13 | disposition home or self-care (01) ==
LOC: LABW 08:30
PROVIDERS: ATTEND Registered Nurse
DX: R53.83 Other fatigue (principal); E61.1 Iron deficiency; Z79.899 Other long term (current) drug therapy; E55.9 Vitamin D deficiency, unspecified
CPT/HCPCS: 36415; 80053; 80061; 82306; 82607; 82746; 83540; 83550; 84439; 84443; 84481; 85027

== ENCOUNTER 2023-01-31 08:04 | Outpatient (CLI) | payer OTHER | END 2023-01-31 19:42 | disposition home or self-care (01) | LOC: US 08:04 | PROVIDERS: ATTEND Registered Nurse | DX: R10.11 Right upper quadrant pain (principal) ==